=== PATIENT | male | born 1990 ===

== ENCOUNTER 2016-05-23 23:02 | Emergency (ER) | payer OTHER ==
[2016-05-24] MEDS ORDERED: ACETAMINOPHEN 500 MG TABLET ONE (00:31)
[2016-05-24] MEDS ORDERED: IBUPROFEN 600 MG TABLET ONE (00:31)
== END 2016-05-24 00:40 | disposition home or self-care (01) ==
LOC: ED 23:02
DX: M25.561 Pain in right knee (principal); S40.011A Contusion of right shoulder, initial encounter; V43.62XA Car passenger injured in collision with other type car in traffic accident, initial encounter; Y92.410 Unspecified street and highway as the place of occurrence of the external cause
CPT/HCPCS: 99283 ×2; A9270 ×2